=== PATIENT | female | born 1990 | race Caucasian/White ===

== ENCOUNTER 2017-01-30 20:51 | Emergency (ER) | payer SELFPAY ==
[~2017-01-30] VITALS: Ht 172.7 cm; Wt 113.4 kg
[2017-01-30 21:40] LABS: BASOPHILS # (AUTO) 0.1 (0.0-0.1); BASOPHILS % 0.6 % (0.0-1.0); EOSINOPHILS # (AUTO) 0.1 (0.0-0.4); EOSINOPHILS % 1.1 % (0.0-6.0); HEMATOCRIT 41.1 % (34.2-44.1); HEMOGLOBIN 13.8 g/dL (12.0-16.0); LYMPHOCYTES # (AUTO) 2.6 (1.0-3.2); LYMPHOCYTES % 24.7 % (18.0-39.1); MEAN CORPUSCULAR HEMOGLOBIN 28.3 pg (28-32); MEAN CORPUSCULAR HGB CONC 33.6 g/dL (31-35); MEAN CORPUSCULAR VOLUME 84.2 fL (81-99); MONOCYTES # (AUTO) 0.5 (0.2-0.8); MONOCYTES % 4.8 % (4.4-11.3); NEUTROPHILS # (AUTO) 7.1 (2.1-6.9); NEUTROPHILS % 68.5 % (38.7-80.0); PLATELET COUNT 197 x10e3/uL (140-360); RED BLOOD COUNT 4.88 x10e6/uL (3.6-5.1); RED CELL DISTRIBUTION WIDTH 12.9 % (11.7-14.4)
[2017-01-30 21:51] LABS: BILIRUBIN,URINE NEGATIVE (NEGATIVE); KETONES,URINE NEGATIVE (NEGATIVE); LEUKOCYTE ESTERASE ,URINE TRACE (NEGATIVE); NITRITE,URINE NEGATIVE (NEGATIVE); PROTEIN,URINE DIPSTICK NEGATIVE (NEGATIVE); URINE UROBILINOGEN 0.2 mg/dL (0.2 - 1)
[2017-01-30 21:53] LABS: CLARITY,URINE CLEAR (CLEAR); COLOR,URINE STRAW (YELLOW)
[2017-01-30 21:56] LABS: PREGNANCY TEST, URINE POSITIVE (NEGATIVE)
[2017-01-30 22:03] LABS: ALANINE AMINOTRANSFERASE 16 IU/L (0-55); ALBUMIN 4.6 g/dL (3.5-5.0); ALBUMIN/GLOBULIN RATIO 1.2 (0.8-2.0); ALKALINE PHOSPHATASE 63 IU/L (40-150); ANION GAP 15.3 mmol/L (8-16); BLOOD UREA NITROGEN 9 mg/dL (7-26); BUN/CREATININE RATIO 11 (6-25); CALCIUM 9.8 mg/dL (8.4-10.2); CARBON DIOXIDE 21 mmol/L (22-29); CHLORIDE 104 mmol/L (98-107); CREATININE, SERUM 0.81 mg/dL (0.57-1.11); EST GLOMERULAR FILTRATION RATE > 60 ML/MIN (60-); GLUCOSE 113 mg/dL (74-118); POTASSIUM 4.3 mmol/L (3.5-5.1); SODIUM 136 mmol/L (136-145)
[2017-01-30 22:18] LABS: EPITHELIAL CELLS,URINE MODERATE /LPF
[2017-01-30 22:19] LABS: BACTERIA,URINE MODERATE /HPF
[2017-01-30 22:27] LABS: HCG,QUANTITATIVE 41704.13 mIU/mL (0-10)
== END 2017-01-30 22:46 | disposition left against medical advice (07) ==
LOC: ER 20:51
DX: O26.891 Other specified pregnancy related conditions, first trimester (principal); R10.9 Unspecified abdominal pain
CPT/HCPCS: 36415; 80053; 81001; 81025; 84702; 85025; 99282

== ENCOUNTER 2018-05-07 18:59 | Emergency (ER) | payer OTHER ==
[~2018-05-07] VITALS: Ht 172.7 cm; Wt 113.4 kg
[2018-05-07] MEDS ORDERED: CLONIDINE HCL 0.2 MG TAB PO ONE (19:45)
[2018-05-07] MEDS ORDERED: ONDANSETRON HCL INJ 2MG/ML 2ML 2 MG/ML VIAL IV STA (19:54)
[2018-05-07] MEDS ORDERED: MORPHINE SULFATE INJ 4 MG/ML INJ 1ML IV ONE (20:00)
--- NOTE | 2018-05-07 21:04 | Diagnostic Imaging Report ---
Exams: Head and cervical spine CTs without IV contrast History: Trauma, fall, hit head, nausea, hypertension. Comparison studies: None Technique: Axial images were obtained from the brain and cervical spine. Coronal and sagittal images reconstructed from the axial data. Dose modulation, iterative reconstruction, and/or weight based adjustment of the mA/kV was utilized to reduce the radiation dose to as low as reasonably achievable. Radiation dose: Intravenous contrast: None Findings: Head CT: Scalp: No abnormalities. Bones: No fractures, blastic or lytic lesions. Extra-axial spaces: No masses. No fluid collections. Brain sulci: Appropriate for age. Ventricles: Normal in size and configuration. No hydrocephalus. Parenchyma: No mass, acute hemorrhage or acute or chronic cortical vascular infarcts. Scattered nonspecific ill-defined mildly confluent hypodensities in the supratentorial white matter are nonspecific. Sellar/suprasellar region: No abnormalities. Craniocervical junction: The foramen magnum is patent. No Chiari one malformation. Cervical spine CT: Fractures: None. Soft tissues: No gross abnormalities. Atlantoaxial articulation: Intact. Alignment: Straightened cervical curvature. No subluxations. Cervicomedullary junction: No abnormalities. The foramen magnum is patent. Vertebrae: No infection or neoplasm. Degenerative changes: Patent canal and foramina. IMPRESSION: Head CT: 1. No acute intracranial abnormalities. 2. Scattered nonspecific ill-defined supratentorial white matter hypodense changes. In the context of hypertension, findings could reflect hypertensive-related vasculopathic changes. Additional considerations include demyelinating disease or vasculitis in the appropriate clinical setting. Recommend brain MRI to further evaluate. Cervical spine CT: 1. No cervical spine fracture subluxation. 2. Cannot exclude ligament, spinal cord and or vascular abnormalities on the basis of this examination. Findings discussed Dr. Brandt at 8:58 PM on 05/07/2017. Signed by: Dr. Saqib Finch M.D. on 05/07/2018 9:01 PM
[2018-05-07 21:54] VITALS: BP 134/72
== END 2018-05-07 21:30 | disposition home or self-care (01) ==
LOC: FSED 18:59
DX: S00.03XA Contusion of scalp, initial encounter (principal); M54.2 Cervicalgia; S16.1XXA Strain of muscle, fascia and tendon at neck level, initial encounter; S13.4XXA Sprain of ligaments of cervical spine, initial encounter; W22.09XA Striking against other stationary object, initial encounter; Y92.511 Restaurant or cafe as the place of occurrence of the external cause; I10 Essential (primary) hypertension; F17.210 Nicotine dependence, cigarettes, uncomplicated
CPT/HCPCS: 70450; 72125; 93005; 99284; J2270; J2405

== ENCOUNTER 2019-05-29 11:34 | Emergency (ER) | payer OTHER ==
[~2019-05-29] VITALS: Ht 182.9 cm; Wt 104.3 kg
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
--- OUTSIDE RECORDS SUMMARY | 2019-05-29 11:37 | XMS REPORT ---
Author Author [facility] Address Unknown Phone Unavailable Care Team Providers Care Landscape Architect And Planner Name Role Phone Samia PRADHAN Unavailable Unavailable Problems This patient has no known problems. Allergies, Adverse Reactions, Alerts This patient has no known allergies or adverse reactions. Medications This patient has no known medications. Results Test Description Test Time Test Comments Text Results Atomic Results Result Comments CT BRAIN WO-HOPD 2018-05-07 20:40:00 [place] [id number] [place] [id number] Patient Name: KEVYN GUERRA MR #: [id number] : 1990 Age/Sex: 28/F Req #: [id number] Adm Physician: Ordered by: MINERVA ESQUIVEL MD Report #: [id number] Location: [facility] Room/Bed: Procedure: [id number] HOPD/CT BRAIN WO-HOPD Exam Date: 05/07/18 Exam Time: 2010 REPORT STATUS: Signed Exams: Head and cervical spine CTs without IV contrast History: Trauma, fall, hit head, nausea, hypertension. Comparison studies: None Technique: Axial images were obtained from the brain and cervical spine. Coronal and sagittal images reconstructed from the axial data. Dose modulation, iterative reconstruction, and/or weight based adjustment of the mA/kV was utilized to reduce the radiation dose to as low as reasonably achievable. Radiation dose: Intravenous contrast: None Findings: Head CT: Scalp: No abnormalities. Bones: No fractures, blastic or lytic lesions. Extra-axial spaces: No masses. No fluid collections. Brain sulci: Appropriate for age. Ventricles: Normal in size and configuration. No hydrocephalus. Parenchyma: No mass, acute hemorrhage or acute or chronic cortical vascular infarcts. Scattered nonspecific ill-defined mildly confluent hypodensities in the supratentorial white matter are nonspecific. Sellar/suprasellar region: No abnormalities. Craniocervical junction: The foramen magnum is patent. No Chiari one malformation. Cervical spine CT: Fractures: None. Soft tissues: No gross abnormalities. Atlantoaxial articulation: Intact. Alignment: Straightened cervical curvature. No subluxations. Cervicomedullary junction: No abnormalities. The foramen magnum is patent. Vertebrae: No infection or neoplasm. Degenerative changes: Patent canal and foramina. IMPRESSION: Head CT: 1. No acute intracranial abnormalities. 2. Scattered nonspecific ill-defined supratentorial white matter hypodense changes. In the context of hypertension, findings could reflect hypertensive- related vasculopathic changes. Additional considerations include demyelinating disease or vasculitis in the appropriate clinical setting. Recommend brain MRI to further evaluate. Cervical spine CT: 1. No cervical spine fracture subluxation. 2. Cannot exclude ligament, spinal cord and or vascular abnormalities on the basis of this examination. Findings discussed Dr. Pradhan at 8:58 PM on 05/07/2017. Signed by: Dr. Howard Finch M.D. on 05/07/2018 9:01 PM Dictated By: HOWARD FINCH MD 00 Transcribed By: COY on 05/07/182100 COPY TO: MINERVA ESQUIVEL MD CT C-SPINE W/O - [facility] 2018-05-07 20:40:00 [place] [address] Patient Name: KEVYN GUERRA MR #: [id number] : 1990 Age/Sex: 28/F Req #: [id number] Adm Physician: Ordered by: MINERVA ESQUIVEL MD Report #: [id number] Location: [facility] Room/Bed: Procedure: [id number] HOPD/CT C-SPINE W/O - HOPD Exam Date: 05/07/18 Exam Time: 2010 REPORT STATUS: Signed Exams: Head and cervical spine CTs without IV contrast History: Trauma, fall, hit head, nausea, hypertension. Comparison studies: None Technique: Axial images were obtained from the brain and cervical spine. Coronal and sagittal images reconstructed from the axial data. Dose modulation, iterative reconstruction, and/or weight based adjustment of the mA/kV was utilized to reduce the radiation dose to as low as reasonably ac hievable. Radiation dose: Intravenous contrast: None Findings: Head CT: Scalp: No abnormalities. Bones: No fractures, blastic or lytic lesions. Extra-axial spaces: No masses. No fluid collections. Brain sulci: Appropriate for age. Ventricles: Normal in size and configuration. No hydrocephalus. Parenchyma: No mass, acute hemorrhage or acute or chronic cortical vascular infarcts. Scattered nonspecific ill-defined mildly confluent hypodensities in the supratentorial white matter are nonspecific. Sellar/suprasellar region: No abnormalities. Craniocervical junction: The foramen magnum is patent. No Chiari one malformation. Cervical spine CT: Fractures: None. Soft tissues: No gross abnormalities. Atlantoaxial articulation: Intact. Alignment: Straightened cervical curvature. No subluxations. Cervicomedullary junction: No abnormalities. The foramen magnum is patent. Vertebrae: No infection or neoplasm. Degenerative changes: Patent canal and foramina. IMPRESSION: Head CT: 1. No acute intracranial abnormalities. 2. Scattered nonspecific ill-defined supratentorial white matter hypodense changes. In the context of hypertension, findings could reflect hypertensive- related vasculopathic changes. Additional considerations include demyelinating disease or vasculitis in the appropriate clinical setting. Recommend brain MRI to further evaluate. Cervical spine CT: 1. No cervical spine fracture subluxation. 2. Cannot exclude ligament, spinal cord and or vascular abnormal ities on the basis of this examination. Findings discussed Dr. Pradhan at 8:58 PM on 05/07/2017. Signed by: Dr. Howard Finhc M.D. on 05/07/2018 9:01 PM Dictated By: HOWARD FINCH MD 00 Transcribed By: COY on 05/07/182100 COPY TO: MINERVA ESQUIVEL MD
[2019-05-29] MEDS ORDERED: SODIUM CHLORIDE 0.9% 1000ML 1,000 ML IV STA (11:59)
[2019-05-29] MEDS ORDERED: ACETAMINOPHEN 325 MG TAB PO ONE (12:15)
--- NOTE | 2019-05-29 12:54 | Diagnostic Imaging Report ---
Examination: CT BRAIN WO CONTRAST History:Seizures. Comparison studies:Head CT performed May 07, 2018. Technique: Axial images were obtained from the skull base to the vertex. Coronal and sagittal images reconstructed from the axial data. Dose modulation, iterative reconstruction, and/or weight based adjustment of the mA/kV was utilized to reduce the radiation dose to as low as reasonably achievable. Intravenous contrast: None Findings: Scalp: No abnormalities. Bones: No fractures, blastic or lytic lesions. Brain sulci: Appropriate for age. Ventricles: Normal in size and configuration. No hydrocephalus. Extra-axial space: No abnormalities. Parenchyma: Interval resolution of previously seen areas of hypoattenuation the bifrontal and periventricular white matter. No masses, hemorrhage, or acute or chronic cortical based vascular insults.. Sellar/suprasellar region: No abnormalities. Craniocervical junction: Patent foramen magnum. No Chiari one malformation. Incidental findings: None. Impression: No new acute intracranial abnormalities when compared to prior head CT performed May 07, 2018. Interval resolution of previously seen supratentorial white matter hypoattenuation. The diagnosis is probably hypertensive related to vasculopathic changes given resolution. Signed by: Dr. Makayla Leblanc M.D. on 05/29/2019 12:50 PM
[2019-05-29 13:47] LABS: BASOPHILS # (AUTO) 0.1 (0.0-0.1); BASOPHILS % 0.5 % (0.0-1.0); EOSINOPHILS % 0.1 % (0.0-6.0); HEMATOCRIT 40.8 % (34.2-44.1); HEMOGLOBIN 13.4 g/dL (12.0-16.0); LYMPHOCYTES # (AUTO) 1.3 (1.0-3.2); LYMPHOCYTES % 12.1 % (18.0-39.1); MEAN CORPUSCULAR HEMOGLOBIN 28.3 pg (28-32); MEAN CORPUSCULAR HGB CONC 32.8 g/dL (31-35); MEAN CORPUSCULAR VOLUME 86.1 fL (81-99); MONOCYTES # (AUTO) 0.5 (0.2-0.8); MONOCYTES % 4.4 % (4.4-11.3); NEUTROPHILS # (AUTO) 9.1 (2.1-6.9); NEUTROPHILS % 82.5 % (38.7-80.0); PLATELET COUNT 196 x10e3/uL (140-360); RED BLOOD COUNT 4.74 x10e6/uL (3.6-5.1); RED CELL DISTRIBUTION WIDTH 13.2 % (11.7-14.4)
[2019-05-29 14:08] LABS: ALANINE AMINOTRANSFERASE 15 IU/L (0-55); ALBUMIN 4.4 g/dL (3.5-5.0); ALBUMIN/GLOBULIN RATIO 1.4 (0.8-2.0); ALKALINE PHOSPHATASE 49 IU/L (40-150); BLOOD UREA NITROGEN 10 mg/dL (7-26); BUN/CREATININE RATIO 12 (6-25); CALCIUM 9.8 mg/dL (8.4-10.2); CARBON DIOXIDE 24 mmol/L (22-29); CHLORIDE 105 mmol/L (98-107); CREATININE, SERUM 0.81 mg/dL (0.57-1.11); EST GLOMERULAR FILTRATION RATE > 60 ML/MIN (60-); GLUCOSE 88 mg/dL (74-118); SODIUM 138 mmol/L (136-145)
[2019-05-29 14:12] LABS: AMPHETAMINES SCREEN,URINE NEGATIVE (NEGATIVE); BENZODIAZEPINES SCREEN,URINE NEGATIVE (NEGATIVE); PHENCYCLIDINE SCREEN,URINE NEGATIVE (NEGATIVE)
[2019-05-29 14:13] LABS: CLARITY,URINE CLEAR (CLEAR); COLOR,URINE YELLOW (YELLOW); LEUKOCYTE ESTERASE ,URINE TRACE (NEGATIVE); NITRITE,URINE NEGATIVE (NEGATIVE); PROTEIN,URINE DIPSTICK TRACE (NEGATIVE)
[2019-05-29 14:14] LABS: BILIRUBIN,URINE NEGATIVE (NEGATIVE); KETONES,URINE NEGATIVE (NEGATIVE); URINE UROBILINOGEN 0.2 mg/dL (0.2 - 1)
[2019-05-29 14:28] LABS: BACTERIA,URINE MANY /HPF; EPITHELIAL CELLS,URINE MODERATE /LPF; RBC,URINE 0-5 /HPF (0-5)
[2019-05-29] MEDS ORDERED: LAMOTRIGINE 100 MG TAB PO ONE (15:00)
== END 2019-05-29 16:08 | disposition home or self-care (01) ==
LOC: ER 11:36
DX: G40.409 Other generalized epilepsy and epileptic syndromes, not intractable, without status epilepticus (principal); N30.90 Cystitis, unspecified without hematuria; I10 Essential (primary) hypertension
CPT/HCPCS: 36415; 70450; 80053; 80307; 81001; 82542; 84702; 85025; 99284; J7030